=== PATIENT | female | born 1940 | race Caucasian/White ===

== ENCOUNTER 2017-03-12 12:43 | Observation (INO) | payer MEDICARE ==
[~2017-03-12] VITALS: Ht 170.2 cm; Wt 90.8 kg
[~2017-03-12 12:43] MED LIST: ALEN70 PO; ASPI81 PO; ATEN1TAB73 PO; CLON1 PO; DRIS50002 PO; FENO50TA PO; GLIM1 PO; LEVO112T17 PO; Meclizine Hcl PO; NEUR600T PO; POTA-243 PO; TAB-TAB PO; TOVI4TAB PO; TRAD5TAB PO; TRIA37.512 PO; ULTR50TA PO; ZOCO80TA PO
[2017-03-12 12:50] VITALS: BP 168/84; PULSE 91; RESP 16; TEMP 98.1; O2SAT 99
[2017-03-12] MEDS ORDERED: GABA600T PO (13:18)
[2017-03-12] MEDS ORDERED: METH750T PO (13:18)
[2017-03-12] MEDS ORDERED: TRAM50TA PO (13:18)
[2017-03-12] MEDS ORDERED: TRIA1TAB5 PO (13:18)
[2017-03-12] MEDS ORDERED: TOVI4TAB PO (13:18)
[2017-03-12] MEDS ORDERED: ATEN25TA PO (13:18)
[2017-03-12] MEDS ORDERED: LEVO100T5 PO (13:18)
[2017-03-12] MEDS ORDERED: POTA10TA2 PO (13:18)
[2017-03-12] MEDS ORDERED: SIMV80TA PO (13:18)
[2017-03-12] MEDS ORDERED: CLON1TAB PO (13:18)
[2017-03-12] MEDS ORDERED: AMIT10TA6 PO (13:18)
[2017-03-12] MEDS ORDERED: GLIM4TAB PO (13:18)
[2017-03-12] MEDS ORDERED: ASPI81CH37 CHEW (13:18)
[2017-03-12] MEDS ORDERED: MULT-65 PO (13:18)
[2017-03-12] MEDS ORDERED: ERGO1CAP30 PO (13:18)
[2017-03-12] MEDS ORDERED: ASPIRIN 81 MG CHEW TAB CHEW STA (13:23)
--- NOTE | 2017-03-12 13:32 | PD ---
HPI Chief Complaint: Fall Time Seen by Provider: 13:05 Travel History International Travel<30 days: No Contact w/Intl Traveler<30days: No Traveled to known affect area: No History of Present Illness HPI This 77-year-old woman who presents to the emergency department complaining of chest pain. She states symptoms started several days ago when she banged her left leg on a piece of wood while getting out of [facility]. She had significant pain and swelling to the anterior part of her left rowan. There is bruising as well. Things seem to be going okay when a couple days ago she tripped again and her grandson and daughter caught her. She did not fall to the ground. Since that time she's been having pressure-like chest discomfort. She describes severe pressure-like chest pain in a bandlike distribution across her front of her chest radiating to her back. She denies having had previous similar symptoms. She states the pain is worse when she lays back flat, worse when she coughs or takes deep breaths. She has no recent URI symptoms or recent coughs or colds. No other complaints. History Past Medical History Narrative Medical Diabetes Hypertension History of PE, appears to be unprovoked, several years ago Hypothyroidism Kidney disease Tetanus Vaccination: < 5 Years Influenza Vaccination: Yes Menopausal: Yes Social History Alcohol Use: No Tobacco Use: No Allergies-Medications (Allergen,Severity, Reaction): Coded Allergies: Lipitor (Verified Allergy, Severe, EDEMA, 03/12/17) Metformin (Unverified Allergy, Severe, COUGH ITCH, 03/12/17) Micardis (Unverified Allergy, Severe, COUGH ITCHING, 03/12/17) Enalapril (Verified Adverse Reaction, Intermediate, LEG SWELLING, 03/12/17) Norvasc (Verified Adverse Reaction, Intermediate, LEG SWELLING, 03/12/17) Uncoded Allergies: BAYCHOL (Adverse Reaction, Intermediate, LEG SWELLING, 03/12/17) . Reported Meds & Prescriptions Reported Meds & Active Scripts Active Reported Ergocalciferol 50,000 Unit Cap 50,000 Units PO DIRECTED Every other week Triamterene-Hydrochlorothiazide 75-50 Mg Tab 1 Tab PO DAILY Tramadol (Tramadol HCl) 50 Mg Tab 50 Mg PO Q8H PRN Toviaz ER (Fesoterodine Fumarate) 4 mg Ryland 4 Mg PO DAILY Simvastatin 80 Mg Tab 80 Mg PO DAILY Potassium Chloride ER (Potassium Chloride) 10 Meq Tab 10 Meq PO BID Multi-Vitamin Daily (Multiple Vitamin) 1 Tab Tab 1 Tab PO DAILY Methocarbamol 750 Mg Tab 750 Mg PO BID PRN Levothyroxine (Levothyroxine Sodium) 100 Mcg Tab 100 Mcg PO DAILY Glimepiride 4 Mg Tab 4 Mg PO BIDAC Gabapentin 600 Mg Tab 600 Mg PO TID Clonazepam 1 Mg Tab 1 Mg PO HS PRN Atenolol 25 Mg Tab 25 Mg PO DAILY Aspirin Low Dose (Aspirin) 81 Mg Chew 81 Mg CHEW DAILY Amitriptyline (Amitriptyline HCl) 10 Mg Tab 10 Mg PO HS Review of Systems Except as stated in HPI: all other systems reviewed are Neg Physical Exam Narrative GENERAL: 77-year-old woman, well-appearing, no acute distress. SKIN: Focused skin assessment warm/dry. NECK: Trachea midline. No JVD. CARDIOVASCULAR: Regular rate and rhythm. No murmur appreciated. No appreciable rub. RESPIRATORY: No accessory muscle use. Clear to auscultation. Breath sounds equal bilaterally. GASTROINTESTINAL: Abdomen soft, non-tender, nondistended. Hepatic and splenic margins not palpable. MUSCULOSKELETAL: No obvious deformities. There is some tenderness with some ecchymosis on the left anterior rowan, focally. There is no significant calf swelling or leg asymmetry. NEUROLOGICAL: Awake and alert. No obvious cranial nerve deficits. Motor grossly within normal limits. Normal speech. PSYCHIATRIC: Appropriate mood and affect; insight and judgment normal. Data Data Last Documented VS Vital Signs Date Time Temp Pulse Resp B/P Pulse Ox O2 Delivery O2 Flow Rate FiO2 03/12/17 14:00 84 18 163/64 96 Room Air 03/12/17 12:50 98.1 Orders Us Leg Venous Doppler (03/12/17 ) Complete Blood Count With Diff (03/12/17 13:19) Comprehensive Metabolic Panel (03/12/17 13:19) Troponin I (03/12/17 13:19) B-Type Natriuretic Peptide (03/12/17 13:19) D-Dimer (03/12/17 13:19) Chest, Single Ap (03/12/17 ) Iv Access Insert/Monitor (03/12/17 13:19) Ed Poc Ultrasound (03/12/17 ) Aspirin Chew (Aspirin Chew) (03/12/17 13:23) Electrocardiogram (03/12/17 13:06) Ventilation & Perfusion Scan (03/12/17 ) Admit Order (Ed Use Only) (03/12/17 ) Labs Laboratory Tests Test 03/12/17 13:25 White Blood Count 14.3 TH/MM3 Red Blood Count 4.53 MIL/MM3 Hemoglobin 13.9 GM/DL Hematocrit 40.5 % Mean Corpuscular Volume 89.5 FL Mean Corpuscular Hemoglobin 30.6 PG Mean Corpuscular Hemoglobin 34.2 % Concent Red Cell Distribution Width 13.1 % Platelet Count 166 TH/MM3 Mean Platelet Volume 10.6 FL Neutrophils (%) (Auto) 82.0 % Lymphocytes (%) (Auto) 11.0 % Monocytes (%) (Auto) 6.5 % Eosinophils (%) (Auto) 0.3 % Basophils (%) (Auto) 0.2 % Neutrophils # (Auto) 11.8 TH/MM3 Lymphocytes # (Auto) 1.6 TH/MM3 Monocytes # (Auto) 0.9 TH/MM3 Eosinophils # (Auto) 0.0 TH/MM3 Basophils # (Auto) 0.0 TH/MM3 CBC Comment DIFF FINAL Differential Comment D-Dimer Quantitative (PE/DVT) 3.07 MG/L FEU Sodium Level 140 MEQ/L Potassium Level 3.6 MEQ/L Chloride Level 102 MEQ/L Carbon Dioxide Level 28.3 MEQ/L Anion Gap 10 MEQ/L Blood Urea Nitrogen 15 MG/DL Creatinine 1.40 MG/DL Estimat Glomerular Filtration 36 ML/MIN Rate Random Glucose 329 MG/DL Calcium Level 9.8 MG/DL Total Bilirubin 0.5 MG/DL Aspartate Amino Transf 19 U/L (AST/SGOT) Alanine Aminotransferase 27 U/L (ALT/SGPT) Alkaline Phosphatase 75 U/L Troponin I LESS THAN 0.02 NG/ML B-Type Natriuretic Peptide 25 PG/ML Total Protein 6.7 GM/DL Albumin 3.4 GM/DL [facility] Medical Decision Making Medical Screen Exam Complete: Yes Emergency Medical Condition: Yes Interpretation(s) My review of EKG: Normal sinus rhythm at a rate of 86, diffuse J-point elevation in the high lateral leads, as well as in the lateral precordial leads , could suggest pericarditis. Normal axis, no other evidence of acute ischemia. LABS: CBC remarkable for mild leukocytosis. CMP remarkable Troponin negative BNP 25 D-dimer 3.07 Doppler ultrasound left lower extremity negative Chest x-ray negative. Differential Diagnosis Pericarditis, ACS, PE, chest wall strain, other Narrative Course medical decision making INITIAL: This 77-year-old woman who presents emergency department pressure-like chest pain. Chest pain and positional in nature which could suggest pericarditis, EKG we will also set just pericarditis. She has a history of unprovoked PE in the past with a leg injury and some leg swelling. This has not however seem to be at DVT. We will check an ultrasound. We'll also check labs, troponin, d-dimer. I do not think the patient has a PE. We'll likely admit for further evaluation and treatment, serial cardiac enzymes. Procedures Procedure Narrative Point of care ultrasound: Focus transthoracic ultrasounds perform immediate the bedside to evaluate for presence or absence of pericardial effusion. Her parasternal long and parasternal short windows were obtained. No definite evidence of effusion. Attempted subxiphoid and apical 4 chamber view without satisfactory views. Diagnosis Primary Impression: Chest pain Admitting Information Admitting Physician Requests: Observation Be Cuevas MD Mar 12, 2017 13:32
[2017-03-12 13:41] LABS: AUTOMATED NEUTROPHIL # 11.8 TH/MM3 (1.8-7.7); BASOPHIL % 0.2 % (0.0-2.0); EOSINOPHIL % 0.3 % (0.0-4.0); HEMATOCRIT 40.5 % (35.0-46.0); LYMPHOCYTE # 1.6 TH/MM3 (1.0-4.8); MEAN CELL VOLUME 89.5 FL (80.0-100.0); MEAN CORPUSCULAR HEMOGLOBIN 30.6 PG (27.0-34.0); MEAN CORPUSCULAR HGB CONC 34.2 % (32.0-36.0); MONO % 6.5 % (0.0-8.0); PLATELET COUNT 166 TH/MM3 (150-450); RED BLOOD COUNT 4.53 MIL/MM3 (4.00-5.30); RED CELL DISTRIBUTION WIDTH 13.1 % (11.6-17.2); WHITE BLOOD COUNT 14.3 TH/MM3 (4.0-11.0)
[2017-03-12 13:42] LABS: HEMO FLAGS DIFF FINAL
--- NOTE | 2017-03-12 13:44 | RADHPO ---
EXAM DATE/TIME: 03/12/2017 13:33 [facility] COMPARISON: CHEST SINGLE AP, October 09, 2014, 15:10. INDICATIONS : Short of Breath MEDICAL HISTORY : Pulmonary embolous SURGICAL HISTORY : None. ENCOUNTER: Initial ACUITY: 1 day PAIN SCORE: 0/10 LOCATION: Bilateral chest FINDINGS: Slight low lung volumes without significant focal pleural or parenchymal opacities. Cardiac silhouett e is minimally enlarged but stable. Pulmonary vascularity is within normal limits given degree of exp ansion. Remainder of the exam is unchanged. CONCLUSION: 1. No acute abnormality or significant interval change. Eulogio Santoyo MD on March 12, 2017 at 13:41 Board Certified Radiologist. This report was verified electronically.
[2017-03-12 13:51] LABS: CHLORIDE 102 MEQ/L (98-107); POTASSIUM 3.6 MEQ/L (3.5-5.1); SODIUM (NA) 140 MEQ/L (136-145)
[2017-03-12 13:55] LABS: ANION GAP 10 MEQ/L (5-15); BICARBONATE 28.3 MEQ/L (21.0-32.0); BLOOD UREA NITROGEN 15 MG/DL (7-18)
[2017-03-12 13:58] LABS: ALT (GPT) 27 U/L (10-53); AST (GOT) 19 U/L (15-37); GLOMERULAR FILTRATION RATE 36 ML/MIN (>89)
[2017-03-12 14:00] VITALS: BP 163/64; PULSE 84; RESP 18; O2SAT 96
[2017-03-12 14:00] LABS: TOTAL BILIRUBIN ADULT 0.5 MG/DL (0.2-1.0)
[2017-03-12 14:01] LABS: ALKALINE PHOSPHATASE 75 U/L (45-117)
--- NOTE | 2017-03-12 14:35 | RADHPO ---
EXAM DATE/TIME: 03/12/2017 14:16 [facility] COMPARISON: No previous studies available for comparison. INDICATIONS : Left leg pain. MEDICAL HISTORY : Hypothyroidism. Hypertension. Arthritis. Hyperlipidemia. Sleep apnea. SURGICAL HISTORY : Cholecystectomy. D&C. ENCOUNTER: Initial ACUITY: 4 - 6 days PAIN SCORE: 4/10 LOCATION: Left leg. TECHNIQUE: Venous ultrasound of the leg was performed from the inguinal ligament to the proximal calf. Real-vineet e, color Doppler and spectral tracing, compression and augmentation techniques were used. FINDINGS: There is normal compressibility of the deep venous system from the inguinal region to the proximal ca lf. No echogenic clot is seen in the lumen of the common femoral, femoral, popliteal, and posterior tibial veins. There is a normal response of the venous system to proximal and distal augmentation an d respiration. CONCLUSION: Negative for deep venous thrombosis. Jigar Hernandez MD FACR on March 12, 2017 at 14:33 Board Certified Radiologist. This report was verified electronically.
--- NOTE | 2017-03-12 16:44 | RADHPO ---
EXAM DATE/TIME: 03/12/2017 16:15 [facility] COMPARISON: CHEST SINGLE AP, March 12, 2017, 13:33. INDICATIONS : Chest pain for 1 day. DOSE: 8.1 mCi Tc99m MAA IV 1.1 mCi Tc99m DTPA aerosol MEDICAL HISTORY : Diabetes mellitus type 2. Hypothyroidism. Hypertension. SURGICAL HISTORY : Cholecystectomy. ENCOUNTER: Initial ACUITY: 1 day PAIN SCALE: 3/10 LOCATION: Bilateral chest TECHNIQUE: Following five minutes of tidal breathing of DTPA aerosol, planar images of the lungs were performed in eight projections. The patient was then injected with MAA, and eight-view perfusion scan was perf ormed. FINDINGS: There is a homogeneous pattern of aerosol delivery to the periphery of both lungs. No focal ventilat ory defects are seen. The perfusion lung scan demonstrates a homogenous pattern of uptake in both lungs. No segmental or s ubsegmental defects are seen. CONCLUSION: Normal examination. Efrem Haddad Jr., MD on March 12, 2017 at 16:41 Board Certified Radiologist. This report was verified electronically.
[2017-03-12] MEDS ORDERED: SODIUM CHLORIDE 0.9% FLUSH 10 ML FLUSH IV FLUSH PRN (16:45)
[2017-03-12 17:00] VITALS: BP 149/85; PULSE 77; RESP 18; TEMP 98.8; O2SAT 99
[2017-03-12] MEDS ORDERED: GLUCAGON 1 MG/ML VIAL OTHER PRN (17:00)
[2017-03-12] MEDS ORDERED: clonazePAM 1 MG TAB PO PRN (17:00)
[2017-03-12] MEDS ORDERED: DEXTROSE 50% IN WATER 50 ML VIAL(D50) IV PRN (17:00)
[2017-03-12] MEDS ORDERED: traMADol HCL 50 MG TAB PO PRN (17:00)
--- NOTE | 2017-03-12 17:45 | MH ---
cc: NGUYỄN BEVERLY M.D. 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 History of prior pulmonary embolism several years ago. Osteoarthritis, restless leg syndrome, sleep apnea on C-PAP, lumbar disk disease, vitamin D deficiency. HISTORY OF PRESENT ILLNESS This is a pleasant 77-year-old white female who came to the emergency room after having some chest discomfort that began last night. She states that it hurts across her chest and then hurts some across her back. It is generally a dull pain but it hurts when she takes a deep breath and also if she coughs. She states it bothers her a little more when she is lying down but does seem to improve when she sits up. The pleuritic component is sharp. She denies actual shortness of breath. She denies any recent URI symptoms. No wheezing. She does have history of a pulmonary embolism around 2009. She also had bumped her left anterior lower leg about the mid rowan region a week ago when she bumped it on a hard object when she was at [employer]. It did swell up and bruise but that is actually improved according to her. She denies any calf tenderness. She has had no fever, chills or palpitations. No GI symptoms. She came to the ED where the ER physician has done an ultrasound of her lower legs and showed no DVT. Chest x-ray was negative. He ordered a ventilation perfusion lung scan because of her D-dimer being elevated. It has come back negative. He thought maybe she has pericarditis based on the EKG showing some slight ST elevation. In lead 1, V2 maybe a subtle elevation in V6 and AVL. There were no T-wave changes. Her troponin and cardiac enzymes have been negative. MEDICAL HISTORY She has hypertension, hyperlipidemia, hypothyroidism, sleep apnea. She has type 2 diabetes mellitus with neuropathy and nephropathy. She has had Charcot's joint of the feet but does not complain of any foot pain currently. She has had stage III chronic kidney disease, allergic rhinitis, restless leg syndrome, osteoporosis, osteoarthritis, vitamin D deficiency. She years ago had Crohn disease but that pretty much resolved. She has had pneumonia in the past. She has had no cancer. No history of heart disease. She has had colon polyps. She had the pulmonary embolism as mentioned. She has not had any definite stroke. No liver disease. PAST SURGICAL HISTORY Cataract extraction, lens implant both eyes, cholecystectomy 1980, D&C in the past, bilateral ptosis repair, tubal ligation. She had tonsillectomy. She has had colonoscopies done on numerous occasions and she has had some polyps removed on her last when she had polyps and diverticulosis on 02/01/16. ALLERGIES SHE CAN NOT TAKE METFORMIN DUE TO HER KIDNEY DISEASE. NORVASC CAUSED SWELLING. MICARDIS CAUSED RASH AND ITCHING. ENALAPRIL CAUSE COUGH. LIPITOR CAUSED MYALGIAS BUT SHE DOES NOT HAVE ANY PROBLEM WITH SIMVASTATIN. MEDICATIONS Current medications: 1. Amitriptyline 10 milligrams at bedtime. 2. Aspirin 81 milligrams a day. 3. Atenolol 25 milligrams a day. 4. Clonazepam 1 milligram at bedtime for anxiety and restless leg syndrome. 5. Gabapentin 300 milligrams two tablets three times a day. 6. Glimepiride 4 milligrams twice a day. 7. She is on Tradjenta 5 milligrams a day. 8. Tramadol 50 milligrams as needed for pain. 9. Vitamin D 50,000 units every other week. 10. Methocarbamol 750 milligrams b.i.d. p.r.n. 11. Triamterene/HCTZ 75/50 one a day. 12. Simvastatin 80 milligrams daily. 13. Levothyroxine 100 micrograms one daily. FAMILY HISTORY Her mother of old age at 92. The father at 77 of colon cancer. He also had coronary artery disease. SOCIAL HISTORY She is a , does not use alcohol, never smoked. She is a retired high school agriculture teacher. REVIEW OF SYSTEMS GENERAL: No fever, chills, sweats. HEENT: No runny nose, sore throat. No vision complaints. CARDIOVASCULAR: As mentioned. Her chest pain has a pleuritic component. No palpitations. No orthopnea, PND. PULMONARY: No shortness of breath, does have pleuritic chest pain. GI: No nausea, vomiting, heartburn, melena, rectal bleeding, constipation, diarrhea. : No dysuria, hematuria. She has no incontinence. EXTREMITIES: Has had the bruise on the left leg as mentioned, it has improved, still a little tender to touch. MUSCULOSKELETAL: She gets some back pain at times, otherwise, stable. NEURO: Has chronic neuropathy in her feet with numbness and tingling. No headache, dizziness, motor weakness. PHYSICAL EXAMINATION GENERAL: Pleasant white female in no distress. Alert and oriented. VITAL SIGNS: Pulse 91, respirations 16, temperature 98.1, BP 160/84, 162/64, O2 sat is ranged from 99-96 on room air. HEENT: TMs clear. Pupils equal. Sclerae nonicteric. Nose without lesion. Mouth without inflammation or lesion. NECK: without JVD, no bruits. HEART: Regular rate and rhythm. No murmur. LUNGS: Lungs are clear. CHEST: She has a definite chest wall tenderness to palpation across her anterior precordium especially around the costochondral regions at the mid chest area. ABDOMEN: Soft, nontender, no mass. EXTREMITIES: She has just some slight swelling of the pretibial area on the mid anterior left rowan with some slight yellowish purplish discoloration consistent with a contusion. There is no calf tenderness. Pulses were palpated both feet. NEURO: Oriented x3. Cranial nerves intact. Motor strength symmetrical. LABORATORY Her white count 14.3, hemoglobin 13.9, neutrophils 82. Her troponin was less than 0.02, BNP 25, BUN is 15, creatinine 1.4, GFR 36, random glucose 329, sodium 140, potassium 3.6, chloride 102, CO2 28.3. AST, ALT alkaline phosphatase were normal. D-dimer was elevated at 3.07. IMAGING STUDIES As mentioned. A ventilation perfusion scan was read as normal. Her ultrasound of the left lower extremity was negative for DVT. Chest x-ray showed no acute process. ASSESSMENT As noted. PLAN The patient is going to be admitted for observation. We are going to repeat troponins and cardiac enzymes and EKG. I will put her on 20 milligrams of prednisone as an anti-inflammatory for her chest pain. She cannot take NSAIDs due to her GFR. Will put her on a sliding scale for blood sugar management through the night. We will continue on her regular medications as well. She is going to be put on Lovenox for DVT prophylaxis. She will be maintained at bedrest for now. MD SAMMY Brown/LINO /5:03 PM /5:24 PM
[2017-03-12] MEDS ORDERED: ENOXAPARIN SODIUM 40 MG/0.4 ML SYRINGE SQ SCH (18:00)
[2017-03-12] MEDS: GABAPENTIN 300 MG CAP PO SCH (18:09)
[2017-03-12] MEDS: predniSONE 20 MG TAB PO SCH (18:09)
[2017-03-12 18:48] LABS: CREATINE KINASE 46 U/L (26-192)
[2017-03-12 20:50] VITALS: BP 135/64; PULSE 87; RESP 20; TEMP 99.9; O2SAT 93
[2017-03-12] MEDS ORDERED: INSULIN ASPART SUPPLEMENTAL SCALE SQ SCH (21:00)
[2017-03-12] MEDS ORDERED: AMITRIPTYLINE HCL 10 MG TAB PO SCH (21:00)
[2017-03-12] MEDS: POTASSIUM CHLORIDE 10 MEQ CONTROLLED RELEASE TAB PO SCH (22:14)
[2017-03-12] MEDS: SODIUM CHLORIDE 0.9% FLUSH 10 ML FLUSH IV FLUSH SCH (22:15)
[2017-03-12] MEDS: INSULIN ASPART SUPPLEMENTAL SCALE SQ SCH (22:19)
[2017-03-12 23:00] VITALS: PULSE 77
[2017-03-12 23:37] LABS: CREATINE KINASE 48 U/L (26-192)
[2017-03-13 00:50] VITALS: BP 142/75; PULSE 80; RESP 18; TEMP 97; O2SAT 94
[2017-03-13 06:00] VITALS: BP 119/71; PULSE 79; RESP 18; TEMP 97.6; O2SAT 93
[2017-03-13] MEDS ORDERED: LEVOTHYROXINE SODIUM 100 MCG TAB PO SCH (06:00)
[2017-03-13 07:00] VITALS: PULSE 75
[2017-03-13] MEDS ORDERED: GLIMEPIRIDE 4 MG TAB PO SCH (07:00)
[2017-03-13] MEDS: INSULIN ASPART SUPPLEMENTAL SCALE SQ SCH ×2 (07:00→11:00)
[2017-03-13 08:00] VITALS: BP 126/70; PULSE 75; RESP 20; TEMP 97.4; O2SAT 92
[2017-03-13 08:45] LABS: AUTOMATED NEUTROPHIL # 9.3 TH/MM3 (1.8-7.7); BASOPHIL # 0.1 TH/MM3 (0-0.2); BASOPHIL % 0.4 % (0.0-2.0); EOSINOPHIL # 0.1 TH/MM3 (0-0.4); EOSINOPHIL % 0.4 % (0.0-4.0); HEMATOCRIT 40.5 % (35.0-46.0); HEMO FLAGS DIFF FINAL; LYMPH % 20.6 % (9.0-44.0); LYMPHOCYTE # 2.8 TH/MM3 (1.0-4.8); MEAN CORPUSCULAR HEMOGLOBIN 30.1 PG (27.0-34.0); MEAN CORPUSCULAR HGB CONC 33.1 % (32.0-36.0); NEUT % 70.6 % (16.0-70.0); PLATELET COUNT 183 TH/MM3 (150-450); RED BLOOD COUNT 4.46 MIL/MM3 (4.00-5.30); RED CELL DISTRIBUTION WIDTH 13.4 % (11.6-17.2); WHITE BLOOD COUNT 13.4 TH/MM3 (4.0-11.0)
[2017-03-13 08:47] LABS: POTASSIUM 3.6 MEQ/L (3.5-5.1)
[2017-03-13 08:50] VITALS: BP 132/78; PULSE 78; RESP 16; O2SAT 96
[2017-03-13 08:58] LABS: BICARBONATE 29.4 MEQ/L (21.0-32.0)
[2017-03-13] MEDS ORDERED: MULTIVITAMIN TAB PO SCH (09:00)
[2017-03-13] MEDS ORDERED: TRIAMTERENE/HCTZ 75 MG/50 MG TAB PO SCH (09:00)
[2017-03-13] MEDS ORDERED: ASPIRIN 81 MG CHEW TAB CHEW SCH (09:00)
[2017-03-13] MEDS ORDERED: PRAVASTATIN SOD 80 MG TAB PO SCH (09:00)
[2017-03-13] MEDS ORDERED: ATENOLOL 25 MG TAB PO SCH (09:00)
[2017-03-13] MEDS ORDERED: TOLTERODINE TARTRATE 4 MG CAP LA PO SCH (09:00)
[2017-03-13] MEDS: POTASSIUM CHLORIDE 10 MEQ CONTROLLED RELEASE TAB PO SCH (09:37)
[2017-03-13] MEDS: GABAPENTIN 300 MG CAP PO SCH (09:37)
[2017-03-13] MEDS: SODIUM CHLORIDE 0.9% FLUSH 10 ML FLUSH IV FLUSH SCH (09:37)
[2017-03-13] MEDS: predniSONE 20 MG TAB PO SCH (09:37)
[2017-03-13] MEDS ORDERED: TRAD5TAB PO (09:52)
--- NOTE | 2017-03-13 12:11 | HHI.PR ---
Subjective Remarks Patient was admitted yesterday to observation for atypical chest pain. Her EKG's have showed no significant changes and her cardiac enzymes have been good. She states her pain is much better today and doesn't seem to have any further pleuritic chest pain. She has no cough, no shortness of breath or other symptoms. She states she feels like she could go home. Objective Vitals Vital Signs Date Time Temp Pulse Resp B/P Pulse Ox O2 Delivery O2 Flow Rate FiO2 03/13/17 08:50 78 16 132/78 96 03/13/17 08:00 97.4 75 20 126/70 92 03/13/17 07:00 75 03/13/17 06:00 97.6 79 18 119/71 93 03/13/17 00:50 97.0 80 18 142/75 94 03/12/17 23:14 18 03/12/17 23:00 77 03/12/17 20:50 99.9 87 20 135/64 93 03/12/17 17:00 98.8 77 18 149/85 99 03/12/17 14:00 84 18 163/64 96 Room Air 03/12/17 13:05 91 03/12/17 12:50 98.1 91 16 168/84 99 03/12/17 03/12/17 03/13/17 14:59 22:59 06:59 Intake Total 0 ml 480 ml Balance 0 ml 480 ml Intake Oral 480 ml IV Total 0 ml # Voids 2 # Bowel Movements 0 Result Diagram: 03/13/17 0805 03/13/17 0805 Other Results Laboratory Tests Test 03/12/17 03/12/17 03/12/17 03/13/17 13:25 17:05 22:40 08:05 White Blood Count 14.3 TH/MM3 13.4 TH/MM3 Red Blood Count 4.53 MIL/MM3 4.46 MIL/MM3 Hemoglobin 13.9 GM/DL 13.4 GM/DL Hematocrit 40.5 % 40.5 % Mean Corpuscular Volume 89.5 FL 91.0 FL Mean Corpuscular Hemoglobin 30.6 PG 30.1 PG Mean Corpuscular Hemoglobin 34.2 % 33.1 % Concent Red Cell Distribution Width 13.1 % 13.4 % Platelet Count 166 TH/MM3 183 TH/MM3 Mean Platelet Volume 10.6 FL 9.8 FL Neutrophils (%) (Auto) 82.0 % 70.6 % Lymphocytes (%) (Auto) 11.0 % 20.6 % Monocytes (%) (Auto) 6.5 % 8.0 % Eosinophils (%) (Auto) 0.3 % 0.4 % Basophils (%) (Auto) 0.2 % 0.4 % Neutrophils # (Auto) 11.8 TH/MM3 9.3 TH/MM3 Lymphocytes # (Auto) 1.6 TH/MM3 2.8 TH/MM3 Monocytes # (Auto) 0.9 TH/MM3 1.1 TH/MM3 Eosinophils # (Auto) 0.0 TH/MM3 0.1 TH/MM3 Basophils # (Auto) 0.0 TH/MM3 0.1 TH/MM3 CBC Comment DIFF FINAL DIFF FINAL Differential Comment D-Dimer Quantitative (PE/DVT) 3.07 MG/L FEU Sodium Level 140 MEQ/L 142 MEQ/L Potassium Level 3.6 MEQ/L 3.6 MEQ/L Chloride Level 102 MEQ/L 105 MEQ/L Carbon Dioxide Level 28.3 MEQ/L 29.4 MEQ/L Anion Gap 10 MEQ/L 8 MEQ/L Blood Urea Nitrogen 15 MG/DL 18 MG/DL Creatinine 1.40 MG/DL 1.20 MG/DL Estimat Glomerular Filtration 36 ML/MIN 44 ML/MIN Rate Random Glucose 329 MG/DL 205 MG/DL Calcium Level 9.8 MG/DL 9.2 MG/DL Total Bilirubin 0.5 MG/DL Aspartate Amino Transf 19 U/L (AST/SGOT) Alanine Aminotransferase 27 U/L (ALT/SGPT) Alkaline Phosphatase 75 U/L Troponin I LESS THAN 0.02 LESS THAN 0.02 LESS THAN 0.02 NG/ML NG/ML NG/ML B-Type Natriuretic Peptide 25 PG/ML Total Protein 6.7 GM/DL Albumin 3.4 GM/DL Total Creatine Kinase 46 U/L 48 U/L Imaging Last Impressions Lung Scan-[facility] Nuclear Medicine 03/12/17 0000 Signed Impressions: Service Date/Time: Sunday, March 12, 2017 16:15 - CONCLUSION: Normal examination. Efrem Haddad Jr., MD Lower Extremity Ultrasound 03/12/17 0000 Signed Impressions: Service Date/Time: Sunday, March 12, 2017 14:16 - CONCLUSION: Negative for deep venous thrombosis. Jigar Hernandez MD FACR Chest X-Ray 6/5/17 0000 Signed Impressions: Service Date/Time: Sunday, March 12, 2017 13:33 - CONCLUSION: 1. No acute abnormality or significant interval change. Eulogio Santoyo MD Objective Remarks Exam: Pleasant female in no distress. HEENT: Pupils equal, no scleral icterus, mouth negative mouth negative Neck: No JVD Heart: RRR with no murmurs Lungs: Clear Chest: She still has slight tenderness of her mid anterior chest wall but it is not as tender as it was when I saw her in the ER yesterday Abdomen: Soft, nontender, no masses Extremities: No ankle edema. She has some bruising of the mid rowan of the left lower leg that is unchanged and stable. No calf pain Neuro: oriented x 3, no focal signs A/P Assessment and Plan Assessment: --Atypical chest pain with negative cardiac enzymes and chest wall tenderness. Her pain is felt to most likely be musculoskeletal in origin. --Type 2 diabetes mellitus with nephropathy, CKD, diabetic neuropathy --Hypertension --Hyperlipidemia --Hypothyroidism --Stage 3 chronic kidney disease --Hx of pulmonary embolism in the past--negative VQ lung scan --Slight elevated D-dime--negative venous ultrasound of leg and negative VQ lung scan --Osteoarthritis --Osteoporosis --Vitamin D deficiency --Obstructive sleep apnea on CPAP --Restless leg syndrome Plan: Patient is clinically better and her EKG's and cardiac enzymes are not suggestive of a cardiac etiology. Her clinical picture is suggestive of a musculoskeletal cause of her chest pain with her having definite chest wall pain to palpation. It has improved since yesterday so she will be discharged on Prednisone 20mg daily for 5 days. She will followup with Dr Valerio within one week (I discussed the case with him). She will resume her home medications. I did tell her to watch her diet closely and monitor her blood sugars more closely at home since she will be on Prednisone. Mahin Butcher MD Mar 13, 2017 12:11
[2017-03-13] MEDS ORDERED: PRED20 PO (13:09)
--- NOTE | 2017-03-13 21:54 | EKG ---
Date Performed: 03/12/2017 Time Performed: 17:08:28 PTAGE: 77 years EKG: Sinus rhythm with PVC(s). Poor R wave progression - probable normal variant Inferior and lateral ST elevation - p ossible early repolarization Since previous tracing, no significant change noted Borderline ECG PREVIOUS TRACING : 03/12/2017 13.06 DOCTOR: Jon Salas Interpretating Date/Time 03/13/2017 21:53:07
--- NOTE | 2017-03-13 21:54 | EKG ---
Date Performed: 03/12/2017 Time Performed: 13:06:32 PTAGE: 77 years EKG: Sinus rhythm (9@128) suggests early repolarization Since previous tracing, no significant change noted Borderline ECG PREVIOUS TRACING : 10/09/2014 14.34 DOCTOR: Jon Salas Interpretating Date/Time 03/13/2017 21:52:08
--- NOTE | 2017-03-13 21:55 | EKG ---
Date Performed: 03/12/2017 Time Performed: 22:36:30 PTAGE: 77 years EKG: Sinus rhythm . Poor R wave progression - probable normal variant Inferior and lateral ST elevation suggests early repolarization Since previous tracing, no significant change noted Borderline ECG PREVIOUS TRACING : 03/12/2017 17.08 DOCTOR: Jon Salas Interpretating Date/Time 03/13/2017 21:53:15
== END 2017-03-13 11:48 | disposition home or self-care (01) ==
LOC: PHED 12:43 → PHEDA 15:06 → PH3A 16:49
PROVIDERS: ADMIT Family Medicine; ATTEND Family Medicine
DX: R07.89 Other chest pain (principal); E11.22 Type 2 diabetes mellitus with diabetic chronic kidney disease; I12.9 Hypertensive chronic kidney disease with stage 1 through stage 4 chronic kidney disease, or unspecified chronic kidney disease; N18.3 Chronic kidney disease, stage 3 (moderate); E11.21 Type 2 diabetes mellitus with diabetic nephropathy; E11.40 Type 2 diabetes mellitus with diabetic neuropathy, unspecified; E78.5 Hyperlipidemia, unspecified; E03.9 Hypothyroidism, unspecified; R79.1 Abnormal coagulation profile; M19.90 Unspecified osteoarthritis, unspecified site; M81.0 Age-related osteoporosis without current pathological fracture; E55.9 Vitamin D deficiency, unspecified; G47.33 Obstructive sleep apnea (adult) (pediatric); G25.81 Restless legs syndrome; M51.86 Other intervertebral disc disorders, lumbar region; Z99.89 Dependence on other enabling machines and devices; Z88.8 Allergy status to other drugs, medicaments and biological substances; Z86.711 Personal history of pulmonary embolism; Z79.82 Long term (current) use of aspirin; Z82.49 Family history of ischemic heart disease and other diseases of the circulatory system; Z87.01 Personal history of pneumonia (recurrent); Z90.49 Acquired absence of other specified parts of digestive tract
CPT/HCPCS: 71010; 78582; 80048; 80053; 82550; 82948; 83880; 84484; 85025; 85379; 93005; 93971; 96372; 99285; A9540; A9567; G0378; J1650; J1815; J7512

== ENCOUNTER 2018-01-28 22:03 | Emergency (ER) | payer MEDICARE ==
[~2018-01-28] VITALS: Ht 170.2 cm; Wt 84.5 kg
[~2018-01-28 22:03] MED LIST changes: -ALEN70 PO; +AMIT10TA6 PO; -ASPI81 PO; +ASPI81CH6 CHEW; -ATEN1TAB73 PO; +ATEN25TA PO; -CLON1 PO; +CLON1TAB PO; -DRIS50002 PO; -FENO50TA PO; +GABA600T PO; -GLIM1 PO; +GLIM4TAB PO; +LEVO100T5 PO; -LEVO112T17 PO; +METH750T PO; +MULT-65 PO; -Meclizine Hcl PO; -NEUR600T PO; -POTA-243 PO; +POTA10TA2 PO; +PRED20 PO; +SIMV80TA PO; -TAB-TAB PO; +TRAM50TA PO; +TRIA1TAB5 PO; -TRIA37.512 PO; -ULTR50TA PO; +VITA500012 PO; -ZOCO80TA PO
[2018-01-28] MEDS ORDERED: METF500T PO (22:18)
[2018-01-28] MEDS ORDERED: METO25TA3 PO (22:18)
[2018-01-28 22:19] VITALS: BP 176/91; PULSE 118; RESP 18; TEMP 99.3; O2SAT 98
[2018-01-28] MEDS ORDERED: MORPHINE SULFATE 2 MG/ML SYRINGE IV PUSH ONE (22:45)
[2018-01-28] MEDS ORDERED: SODIUM CHLORID 0.9% 500 ML INJ 500 ML IV ONE (22:45)
--- NOTE | 2018-01-28 22:58 | PD ---
HPI Chief Complaint: Fall Time Seen by Provider: 22:25 Travel History International Travel<30 days: No Contact w/Intl Traveler<30days: No Traveled to known affect area: No History of Present Illness HPI Patient is a 77 year old female who comes in after a fall tonight. She says she was walking to the bathroom this evening when she suddenly fell. She says she remembers "flying through the air" and landing on her back. She denies any loss of consciousness. She denies having any chest pain or shortness of breath. She says that she did take 2 tramadol prior to going to bed due to pain in her back. She also has been on Cipro for UTI. She denies fever chills. She complains of pain to her back and to her right hip. She also has a large lump to the back of her head. She denies dizziness, nausea or vomiting. Severity is mild to moderate. PFSH Past Medical History Hx Anticoagulant Therapy: Yes (ASP) Arthritis: Yes Asthma: No Blood Disorders: No Anxiety: No Depression: No Heart Rhythm Problems: No Cancer: No Cardiovascular Problems: Yes (htn on meds) High Cholesterol: No Congestive Heart Failure: No COPD: No Cerebrovascular Accident: No Diabetes: Yes (ON METFORMIN) Patient Takes Glucophage: Yes Diminished Hearing: No Endocrine: Yes GERD: Yes (JUST RECENTLY) Glaucoma: No Headaches: No Hepatitis: No Hiatal Hernia: No Hypertension: Yes Immune Disorder: No Implanted Vascular Access Dvce: No Kidney Stones: No Medical other: Yes (DIAB. NEUROPATHY) Musculoskeletal: Yes (Disc disease) Neurologic: Yes (atypical vertigo) Psychiatric: No Reproductive: No Respiratory: Yes (PE) Migraines: No Renal Failure: No Seizures: No Sleep Apnea: Yes (Wears CPAP at night ) Thyroid Disease: Yes Triglycerides - High: Yes Ulcer: No Tetanus Vaccination: Unknown Influenza Vaccination: Yes ?: Not Menopausal: Yes Past Surgical History Abdominal Surgery: Yes (CHOLECYSTECTOMY) Cholecystectomy: Yes Eye Surgery: Yes (CATARACT EXTRACT. RIGHT/LEFT) Gynecologic Surgery: Yes (D & C) Pacemaker: No Other Surgery: Yes Social History Alcohol Use: No Tobacco Use: No Substance Use: No Allergies-Medications (Allergen,Severity, Reaction): Coded Allergies: atorvastatin (Unverified Allergy, Severe, EDEMA, 01/28/18) metformin (Unverified Allergy, Severe, COUGH ITCH, 01/28/18) telmisartan (Unverified Allergy, Severe, COUGH ITCHING, 01/28/18) amlodipine (Unverified Adverse Reaction, Intermediate, LEG SWELLING, ) enalaprilat (Unverified Adverse Reaction, Intermediate, LEG SWELLING, 01/28) Uncoded Allergies: BAYCHOL (Adverse Reaction, Intermediate, LEG SWELLING, 03/12/17) . Reported Meds & Prescriptions Reported Meds & Active Scripts Active Tradjenta (Linagliptin) 5 Mg Tab 5 Mg PO DAILY Reported Metformin (Metformin HCl) 500 Mg Tab 500 Mg PO BID Metoprolol Tartrate 25 Mg Tab 12.5 Mg PO BID Ergocalciferol 50,000 Unit Cap 50,000 Units PO DIRECTED Every other week Triamterene-Hydrochlorothiazide 75-50 Mg Tab 1 Tab PO DAILY Tramadol (Tramadol HCl) 50 Mg Tab 50 Mg PO Q8H PRN Toviaz ER (Fesoterodine Fumarate) 4 mg Ryland 4 Mg PO DAILY Simvastatin 80 Mg Tab 80 Mg PO DAILY Potassium Chloride ER (Potassium Chloride) 10 Meq Tab 10 Meq PO BID Multi-Vitamin Daily (Multiple Vitamin) 1 Tab Tab 1 Tab PO DAILY Methocarbamol 750 Mg Tab 750 Mg PO BID PRN Levothyroxine (Levothyroxine Sodium) 100 Mcg Tab 100 Mcg PO DAILY Glimepiride 4 Mg Tab 4 Mg PO BIDAC Gabapentin 600 Mg Tab 600 Mg PO TID Clonazepam 1 Mg Tab 1 Mg PO HS PRN Aspirin Low Dose (Aspirin) 81 Mg Chew 81 Mg CHEW DAILY Amitriptyline (Amitriptyline HCl) 10 Mg Tab 10 Mg PO HS Review of Systems Except as stated in HPI: all other systems reviewed are Neg General / Constitutional: No: Fever, Chills HENT: Positive: Headaches Cardiovascular: No: Chest Pain or Discomfort Respiratory: No: Shortness of Breath Gastrointestinal: No: Nausea, Vomiting Musculoskeletal: Positive: Pain Skin: No Rash, No Change in Pigmentation Neurologic: No: Weakness, Dizziness Physical Exam Narrative GENERAL: Awake and alert, in no acute distress. SKIN: Focused skin assessment warm/dry. No wounds or signs of infection. HEAD: Atraumatic. Normocephalic. Swelling to the back of the head. EYES: Pupils equal and round. No scleral icterus. Extraocular movements intact. ENT: Mucous membranes pink and moist. NECK: Trachea midline. No JVD. CARDIOVASCULAR: Regular rate and rhythm. No murmur appreciated. RESPIRATORY: No accessory muscle use. Clear to auscultation. Breath sounds equal bilaterally. GASTROINTESTINAL: Abdomen soft, non-tender, nondistended. MUSCULOSKELETAL: No obvious deformities. No clubbing. No cyanosis. No edema. Tender to palpation of the lumbar spine. Pain with movement of her back as well as her right leg. NEUROLOGICAL: Awake and alert. No obvious cranial nerve deficits. Motor grossly within normal limits. Normal speech. PSYCHIATRIC: Appropriate mood and affect; insight and judgment normal. Data Data Last Documented VS Vital Signs Date Time Temp Pulse Resp B/P (MAP) Pulse Ox O2 Delivery O2 Flow Rate FiO2 01/28/18 22:19 99.3 118 18 176/91 (119) 98 Orders Orders Iv Access Insert/Monitor (01/28/18 22:34) Complete Blood Count With Diff (01/28/18 22:34) Comprehensive Metabolic Panel (01/28/18 22:34) Troponin I (01/28/18 22:34) Act Partial Throm Time (Ptt) (01/28/18 22:34) Prothrombin Time / Inr (Pt) (01/28/18 22:34) Electrocardiogram (01/28/18 ) Urinalysis - C+S If Indicated (01/28/18 22:34) Sodium Chlorid 0.9% 500 Ml Inj (Ns 500 M (01/28/18 22:45) Morphine Inj (Morphine Inj) (01/28/18 22:45) Ct Brain W/O Iv Contrast(Rout) (01/28/18 ) Ct Cerv Spine W/O Contrast (01/28/18 ) Ct Lumb Spine W/O Contrast (01/28/18 ) Pelvis, Ap Only (Routine) (01/28/18 ) Femur (Ap & Lat/2vws) (01/28/18 ) MDM Medical Decision Making Medical Screen Exam Complete: Yes Emergency Medical Condition: Yes Medical Record Reviewed: Yes Differential Diagnosis ICH versus head injury versus lumbar spine fracture versus hip fracture versus UTI Narrative Course Patient is a 77-year-old female who comes in after a fall tonight. She denies any loss of consciousness, but she does not know why she fell. IV established, labs sent. CT of the head, neck, lumbar spine ordered. X-rays of the pelvis and femur ordered. Patient given pain medicine. Signed out to Dr. Garcia to follow up testing and disposition the patient. Annabel Leone MD Jan 28, 2018 22:58
--- NOTE | 2018-01-28 23:02 | PD ---
Physical Exam Date Seen by Provider: Jan 28, 2018 Time Seen by Provider: 23:00 Narrative accepted in transfer of care from Dr Leone GENERAL: Well-developed well-nourished female no acute distress or respiratory distress; GCS 15 SKIN: Warm and dry. CARDIOVASCULAR: Regular rate and rhythm without murmurs, gallops, or rubs. RESPIRATORY: Breath sounds equal bilaterally. No accessory muscle use. GASTROINTESTINAL: Abdomen soft, non-tender, nondistended. Data Data Last Documented VS Vital Signs Date Time Temp Pulse Resp B/P (MAP) Pulse Ox O2 Delivery O2 Flow Rate FiO2 01/29/18 00:39 90 141/83 (102) 01/28/18 22:19 99.3 18 98 Orders Orders Iv Access Insert/Monitor (01/28/18 22:34) Complete Blood Count With Diff (01/28/18 22:34) Comprehensive Metabolic Panel (01/28/18 22:34) Troponin I (01/28/18 22:34) Act Partial Throm Time (Ptt) (01/28/18 22:34) Prothrombin Time / Inr (Pt) (01/28/18 22:34) Electrocardiogram (01/28/18 ) Urinalysis - C+S If Indicated (01/28/18 22:34) Sodium Chlorid 0.9% 500 Ml Inj (Ns 500 M (01/28/18 22:45) Morphine Inj (Morphine Inj) (01/28/18 22:45) Ct Brain W/O Iv Contrast(Rout) (01/28/18 ) Ct Cerv Spine W/O Contrast (01/28/18 ) Ct Lumb Spine W/O Contrast (01/28/18 ) Pelvis, Ap Only (Routine) (01/28/18 ) Femur (Ap & Lat/2vws) (01/28/18 ) Urine Culture (01/28/18 23:30) Ed Discharge Order (01/29/18 00:32) Labs Laboratory Tests Test 01/28/18 23:19 01/28/18 23:30 White Blood Count 11.6 TH/MM3 Red Blood Count 5.05 MIL/MM3 Hemoglobin 15.0 GM/DL Hematocrit 44.4 % Mean Corpuscular Volume 87.8 FL Mean Corpuscular Hemoglobin 29.7 PG Mean Corpuscular Hemoglobin Concent 33.8 % Red Cell Distribution Width 12.6 % Platelet Count 255 TH/MM3 Mean Platelet Volume 9.9 FL Neutrophils (%) (Auto) 66.4 % Lymphocytes (%) (Auto) 24.1 % Monocytes (%) (Auto) 7.7 % Eosinophils (%) (Auto) 1.5 % Basophils (%) (Auto) 0.3 % Neutrophils # (Auto) 7.7 TH/MM3 Lymphocytes # (Auto) 2.8 TH/MM3 Monocytes # (Auto) 0.9 TH/MM3 Eosinophils # (Auto) 0.2 TH/MM3 Basophils # (Auto) 0.0 TH/MM3 CBC Comment DIFF FINAL Differential Comment Prothrombin Time 10.7 SEC Prothromb Time International Ratio 1.1 RATIO Activated Partial Thromboplast Time 24.6 SEC Blood Urea Nitrogen 23 MG/DL Creatinine 1.40 MG/DL Random Glucose 301 MG/DL Total Protein 7.1 GM/DL Albumin 3.3 GM/DL Calcium Level 9.2 MG/DL Alkaline Phosphatase 73 U/L Aspartate Amino Transf (AST/SGOT) 21 U/L Alanine Aminotransferase (ALT/SGPT) 24 U/L Total Bilirubin 0.3 MG/DL Sodium Level 133 MEQ/L Potassium Level 3.4 MEQ/L Chloride Level 97 MEQ/L Carbon Dioxide Level 26.5 MEQ/L Anion Gap 10 MEQ/L Estimat Glomerular Filtration Rate 36 ML/MIN Troponin I LESS THAN 0.02 NG/ML Urine Collection Type CLEAN CATCH Urine Color YELLOW Urine Turbidity CLEAR Urine pH 5.5 Urine Specific Medon 1.010 Urine Protein NEG mg/dL Urine Glucose (UA) 100 mg/dL Urine Ketones NEG mg/dL Urine Occult Blood NEG Urine Nitrite NEG Urine Bilirubin NEG Urine Urobilinogen 0.2 MG/DL Urine Leukocyte Esterase SMALL Urine WBC 9-14 /hpf Urine Squamous Epithelial Cells 0-5 /hpf Urine Hyaline Casts 3-5 /lpf Microscopic Urinalysis Comment CULTURE INDICATED MDM Medical Record Reviewed: Yes Supervised Visit with ADRIANE: No Interpretation(s) EKG normal sinus rhythm rate [address] elevation injury pattern or ectopy noted Last Impressions Pelvis X-Ray 01/28/18 0000 Signed Impressions: Service Date/Time: Sunday, January 28, 2018 22:46 - CONCLUSION: 1. No acute fracture. Mild osteoarthritis of the hips. Biju Latif MD Lumbar Spine CT 01/28/18 0000 Signed Impressions: Service Date/Time: Sunday, January 28, 2018 22:47 - CONCLUSION: 1. No acute fracture. Degenerative grade 1 anterolisthesis of L5 on S1. Moderate central canal stenosis at L3-4. Biju Latif MD Head CT 01/28/18 0000 Signed Impressions: Service Date/Time: Sunday, January 28, 2018 22:42 - CONCLUSION: 1. No acute intracranial abnormalities. Small right parietal scalp hematoma. Biju Latif MD Femur X-Ray 01/28/18 0000 Signed Impressions: Service Date/Time: Sunday, January 28, 2018 22:46 - CONCLUSION: 1. No acute bony abnormality. Biju Latif MD Cervical Spine CT 01/28/18 0000 Signed Impressions: Service Date/Time: Sunday, January 28, 2018 22:42 - CONCLUSION: 1. No acute findings. Moderate degenerative disc disease and facet arthropathy. No canal stenosis. Biju Latif MD CBC & BMP Diagram 01/28/18 23:19 Total Protein 7.1, Albumin 3.3 L, Calcium Level 9.2, Alkaline Phosphatase 73, Aspartate Amino Transf (AST/SGOT) 21, Alanine Aminotransferase (ALT/SGPT) 24, Total Bilirubin 0.3 Vital Signs Date Time Temp Pulse Resp B/P (MAP) Pulse Ox O2 Delivery O2 Flow Rate FiO2 01/28/18 22:19 99.3 118 18 176/91 (119) 98 Troponin I: Less than 0.02, not elevated Urinalysis: Positive leukocyte Estrace positive white blood cells no bacteria culture indicated (patient is currently taking antibiotics Cipro twice daily is aware of urinalysis results and reports that this sounds improved from comparison urinalysis prior to onset of Cipro therapy) Differential Diagnosis accepted in transfer of care from Dr Leone; please refer to her dictation Narrative Course accepted in transfer of care from Dr Leone; follow up labs, imaging, and disposition @ 23:30 up out of bed, ambulating independently to the bathroom Imaging studies negative for acute process; lab work remarkable for renal insufficiency mildly worsening; troponin I is less than 0.02, not elevated; EKG is sinus rhythm with no acute ST elevation ectopy noted; normal axis and intervals Patient aware of imaging results lab results and EKG findings; patient aware of abnormal urinalysis but reports findings consistent with improved UA results Repeat vital signs indicates patient is no longer tachycardic HR 90; initial heart rate of 118 may reflect the patient's pain which has improved after receiving dose of morphine and IV fluids upon arrival to the emergency department. Patient is stable for outpatient management and follow-up with her primary care provider and is encouraged to complete her course of antibiotic as well as noted to have mild hypokalemia and encouraged to add potassium containing foods and beverages to dietary intake. Diagnosis Primary Impression: Scalp hematoma Qualified Codes: S00.03XA - Contusion of scalp, initial encounter Additional Impressions: Lumbar back sprain Qualified Codes: S33.5XXA - Sprain of ligaments of lumbar spine, initial encounter Fall from slip, trip, or stumble Qualified Codes: W01.0XXA - Fall on same level from slipping, tripping and stumbling without subsequent striking against object, initial encounter Renal insufficiency DM (diabetes mellitus) Abnormal urinalysis Referrals: Murtaza Valerio MD PhD 2 days Patient Instructions: General Instructions Additional Instruction: Increase fluid hydration Add potassium containing foods and beverages to dietary intake Take as tolerated acetaminophen/Tylenol every 4 hours for minor pain or fever 100.4F or greater or ibuprofen/Advil/Motrin may take occasionally 400-600 mg as often as every 6-8 hours for pain associated with inflammation Follow head injury precautions for 24 hours Use ice pack intermittently for first 12-24 hours to areas of soft tissue swelling Return to the emergency department for any concerns or change in condition Follow-up with your primary care provider call office in a.m. to schedule follow -up appointment Disposition: 01 DISCHARGE HOME Condition: Stable Oneida Garcia MD Jan 28, 2018 23:02
--- NOTE | 2018-01-28 23:17 | RADRPT ---
EXAM DATE/TIME: 01/28/2018 22:42 [facility] COMPARISON: No previous studies available for comparison. INDICATIONS : Trauma. Fall. RADIATION DOSE: 63.45 CTDIvol (mGy) MEDICAL HISTORY : Vertigo. SURGICAL HISTORY : None. ENCOUNTER: Initial ACUITY: 1 day PAIN SCALE: 4/10 LOCATION: occipital TECHNIQUE: Multiple contiguous axial images were obtained of the head. Using automated exposure control and adj ustment of the mA and/or kV according to patient size, radiation dose was kept as low as reasonably a chievable to obtain optimal diagnostic quality images. DICOM format image data is available electro nically for review and comparison. FINDINGS: CEREBRUM: The ventricles are normal for age. No evidence of midline shift, mass lesion, hemorrhage or acute in farction. No extra-axial fluid collections are seen. POSTERIOR FOSSA: The cerebellum and brainstem are intact. The 4th ventricle is midline. The cerebellopontine angle i s unremarkable. EXTRACRANIAL: The visualized portion of the orbits is intact. SKULL: The calvaria is intact. No evidence of skull fracture. There is a small right parietal scalp hematom a. CONCLUSION: 1. No acute intracranial abnormalities. Small right parietal scalp hematoma. Biju Latif MD on January 28, 2018 at 23:14 Board Certified Radiologist. This report was verified electronically.
--- NOTE | 2018-01-28 23:22 | RADRPT ---
EXAM DATE/TIME: 01/28/2018 22:47 [facility] COMPARISON: No previous studies available for comparison. INDICATIONS : Trauma. Fall. RADIATION DOSE: 30.30 CTDIvol (mGy) MEDICAL HISTORY : Rheumatoid arthritis. SURGICAL HISTORY : Cholecystectomy. ENCOUNTER: Initial ACUITY: 1 day PAIN SCALE: 4/10 LOCATION: lower back TECHNIQUE: Volumetric scanning of the lumbar spine was performed. Multiplanar reconstructions in the sagittal, coronal and oblique axial planes were performed. Using automated exposure control and adjustment of the mA and/or kV according to patient size, radiation dose was kept as low as reasonably achievable t o obtain optimal diagnostic quality images. DICOM format image data is available electronically for review and comparison. FINDINGS: No acute fracture identified. At O09-X5-S3-S9 there is no significant canal stenosis. At L3-4 there is a posterior disc osteophyte complex and facet arthropathy with at least moderate michael tral canal stenosis and moderate to severe right-sided foraminal stenosis. At L4-5 there is a posterior disc osteophyte complex and facet arthropathy with mild stenosis of the lateral recesses and mild bilateral foraminal stenosis. L5-S1 there is a mild degenerative grade 1 anterolisthesis. No central canal stenosis. Moderate bilat eral foraminal stenosis. There is a mild levoscoliosis. CONCLUSION: 1. No acute fracture. Degenerative grade 1 anterolisthesis of L5 on S1. Moderate central canal stenos is at L3-4. Biju Latif MD on January 28, 2018 at 23:16 Board Certified Radiologist. This report was verified electronically.
--- NOTE | 2018-01-28 23:27 | RADRPT ---
EXAM DATE/TIME: 01/28/2018 22:46 [facility] COMPARISON: No previous studies available for comparison. INDICATIONS : Right hip pain post fall. MEDICAL HISTORY : None. SURGICAL HISTORY : None. ENCOUNTER: Initial ACUITY: 1 day PAIN SCORE: 6/10 LOCATION: Right hip FINDINGS: A single frontal view of the pelvis demonstrates no evidence of fracture. The bony pelvic ring is in tact. Bony mineralization is normal. The soft tissues are intact. CONCLUSION: 1. No acute fracture. Mild osteoarthritis of the hips. Biju Latif MD on January 28, 2018 at 23:24 Board Certified Radiologist. This report was verified electronically.
--- NOTE | 2018-01-28 23:28 | RADRPT ---
EXAM DATE/TIME: 01/28/2018 22:46 [facility] COMPARISON: No previous studies available for comparison. INDICATIONS : Right hip pain post fall. MEDICAL HISTORY : None. SURGICAL HISTORY : None. ENCOUNTER: Initial ACUITY: 1 day PAIN SCORE: 8/10 LOCATION: Right hip FINDINGS: Two view examination of the right femur demonstrates no evidence of fracture or dislocation. Bony mi neralization is normal. The soft tissue structures are intact. CONCLUSION: 1. No acute bony abnormality. Biju Latif MD on January 28, 2018 at 23:26 Board Certified Radiologist. This report was verified electronically.
[2018-01-28 23:30] LABS: AUTOMATED NEUTROPHIL # 7.7 TH/MM3 (1.8-7.7); BASOPHIL % 0.3 % (0.0-2.0); EOSINOPHIL # 0.2 TH/MM3 (0-0.4); EOSINOPHIL % 1.5 % (0.0-4.0); HEMATOCRIT 44.4 % (35.0-46.0); LYMPH % 24.1 % (9.0-44.0); LYMPHOCYTE # 2.8 TH/MM3 (1.0-4.8); MEAN CELL VOLUME 87.8 FL (80.0-100.0); MEAN CORPUSCULAR HEMOGLOBIN 29.7 PG (27.0-34.0); MEAN CORPUSCULAR HGB CONC 33.8 % (32.0-36.0); MEAN PLATELET VOLUME 9.9 FL (7.0-11.0); MONO % 7.7 % (0.0-8.0); MONOCYTE # 0.9 TH/MM3 (0-0.9); NEUT % 66.4 % (16.0-70.0); PLATELET COUNT 255 TH/MM3 (150-450); RED BLOOD COUNT 5.05 MIL/MM3 (4.00-5.30); RED CELL DISTRIBUTION WIDTH 12.6 % (11.6-17.2); WHITE BLOOD COUNT 11.6 TH/MM3 (4.0-11.0)
--- NOTE | 2018-01-28 23:30 | RADRPT ---
EXAM DATE/TIME: 01/28/2018 22:42 [facility] COMPARISON: No previous studies available for comparison. INDICATIONS : Trauma. Fall. RADIATION DOSE: 26.67 CTDIvol (mGy) MEDICAL HISTORY : None SURGICAL HISTORY : None. ENCOUNTER: Initial ACUITY: 1 day PAIN SCALE: 4/10 LOCATION: neck TECHNIQUE: Volumetric scanning of the cervical spine was performed. Multiplanar reconstructions in the sagittal, coronal and oblique axial planes were performed. Using automated exposure control and adjustment o f the mA and/or kV according to patient size, radiation dose was kept as low as reasonably achievable to obtain optimal diagnostic quality images. DICOM format image data is available electronically f or review and comparison. FINDINGS: VERTEBRAE: Normal vertebral body height. ALIGNMENT: No evidence of subluxation. No acute fracture. Moderate degenerative disc disease and facet arthropathy. No central canal stenosi s. CONCLUSION: 1. No acute findings. Moderate degenerative disc disease and facet arthropathy. No canal stenosis. Biju Latif MD on January 28, 2018 at 23:26 Board Certified Radiologist. This report was verified electronically.
[2018-01-28 23:40] LABS: CHLORIDE 97 MEQ/L (98-107); SODIUM (NA) 133 MEQ/L (136-145)
[2018-01-28 23:43] LABS: CALCIUM 9.2 MG/DL (8.5-10.1)
[2018-01-28 23:44] LABS: ALBUMIN 3.3 GM/DL (3.4-5.0); BICARBONATE 26.5 MEQ/L (21.0-32.0); BLOOD UREA NITROGEN 23 MG/DL (7-18); GLUCOSE,RANDOM 301 MG/DL (74-106)
[2018-01-28 23:46] LABS: INTERNATIONAL NORMALIZED RATIO 1.1 RATIO; PROTHROMBIN TIME - PATIENT 10.7 SEC (9.8-11.6)
[2018-01-28 23:47] LABS: ALT (GPT) 24 U/L (10-53); AST (GOT) 21 U/L (15-37); GLOMERULAR FILTRATION RATE 36 ML/MIN (>89)
[2018-01-28 23:48] LABS: TOTAL BILIRUBIN ADULT 0.3 MG/DL (0.2-1.0); TOTAL PROTEIN 7.1 GM/DL (6.4-8.2)
[2018-01-28 23:50] LABS: ALKALINE PHOSPHATASE 73 U/L (45-117)
[2018-01-28 23:52] LABS: TROPONIN I LESS THAN 0.02 NG/ML (0.02-0.05)
[2018-01-29 00:08] LABS: BILIRUBIN, URINE NEG (NEG); BLOOD, URINE NEG (NEG); GLUCOSE,URINE 100 mg/dL (NEG); KETONE, URINE NEG (NEG); NITRITE,URINE NEG (NEG); PH, URINE 5.5 (5.0-8.5); URINE COLOR YELLOW (YELLW/STRAW); URINE LEUKOCYTE ESTERASE SMALL (NEG)
[2018-01-29 00:28] LABS: SQUAMOUS EPITHELIAL CELL URINE 0-5 /hpf (0-5)
[2018-01-29 00:39] VITALS: BP 141/83; PULSE 90
--- NOTE | 2018-01-29 05:23 | EKG ---
Date Performed: 01/28/2018 Time Performed: 23:38:11 PTAGE: 77 years EKG: Sinus rhythm NORMAL ECG PREVIOUS TRACING : 03/12/2017 22.36 Compared to previous tracing, nonspecific ST changes have r esolved. DOCTOR: Neno Owen Interpretating Date/Time 01/29/2018 05:23:03
== END 2018-01-29 00:46 | disposition home or self-care (01) ==
LOC: PHED 22:03
DX: S00.03XA Contusion of scalp, initial encounter (principal); S33.5XXA Sprain of ligaments of lumbar spine, initial encounter; N28.9 Disorder of kidney and ureter, unspecified; M48.061 Spinal stenosis, lumbar region without neurogenic claudication; I10 Essential (primary) hypertension; M16.11 Unilateral primary osteoarthritis, right hip; E11.40 Type 2 diabetes mellitus with diabetic neuropathy, unspecified; K21.9 Gastro-esophageal reflux disease without esophagitis; W19.XXXA Unspecified fall, initial encounter
CPT/HCPCS: 70450; 72125; 72131; 72170; 73552; 80053; 81001; 84484; 85025; 85610; 85730; 87086; 93005; 96361; 96374; 99285; J2270; J7040